=== PATIENT | male | born 1995 | race Caucasian/White ===

== ENCOUNTER 2018-07-08 07:14 | Emergency (ER) | payer OTHER, SELFPAY ==
[2018-07-08 07:21] VITALS: BP 149/80; PULSE 99; RESP 12; TEMP 36.8; O2SAT 96
--- NOTE | 2018-07-08 07:32 | W.ED.GENAD ---
Discharge Plan Disposition Patient Disposition: HOME Condition: Improving Discharge Details Chief Complaint: RespSymp Clinical Impression: Maxillary sinusitis, acute Primary Care Provider: Criss Brandon V ED Provider: Fabrizio Borden Home Meds and New Rx's Prescriptions: New cefdinir 300 mg capsule 300 mg PO Q12H 10 Days Qty: 20 RF: 0 Discharge Instructions Instructions: Sinusitis (ED) Additional Instructions: Home to rest today. Small, frequent sips of fluids to maintain hydration. May continue the Mucinex as you have been taking previously. Please take antibiotics as prescribed. Tylenol and/or ibuprofen as needed for discomfort Stand Alone Forms: Work Release Medical Decision Making 23-year-old male with 7-10 days of cough, congestion, sputum production and now with left face and ear pain. His exam is consistent with acute sinusitis and he likely does have some postnasal drip and bronchitis as well. He does not have abnormal oxygenation. I do feel he is a good candidate for treatment with a course of oral antibiotics. Discussed home management as well as return precautions with the patient prior to discharge. HPI General Mode of arrival: ambulatory. Date/Time Provider Initiated Documentation: 07/08/18 07:27. Limitations to Documentation: no limitations. History of Present Illness 23 year old M presents to the emergency department with the chief complaint of Cough and congestion over days time, now productive of sputum, described as moderate, Quality is described as aching, and is localized to the chest. Patient reports no radiation. Patient started experiencing this day(s) and it has been intermittent. No relieving factors improve symptom(s), No exacerbating factors reported . Patient notes cough and fever/chills; denies nausea/vomiting. Patient did receive the following treatments prior to arrival, other (mucinex) Related Data Home Medications Medication Instructions Recorded Confirmed cefdinir 300 mg PO Q12H 10 Days #20 cap 07/08/18 Previous Rx's Medication Instructions Recorded cefdinir 300 mg PO Q12H 10 Days #20 cap 07/08/18 Allergies Allergy/AdvReac Type Severity Reaction Status Date / Time Penicillins Allergy Unverified 07/08/18 07:27 General Stated Complaint: RespSymp GE: 4 Review of Systems Review of Systems 6 systems reviewed and otherwise negative PFSH Social History Smoking/Tobacco Use Status: Never Social History Smoking/Tobacco Use Status: Never Exam Narrative Exam Narrative: GEN: awake, alert, oriented 3. Pleasant, well groomed, interactive. HEAD: Normocephalic, atraumatic ENT: Mucous membranes moist, oropharynx erythematous and otherwise unremarkable, External ear exam unremarkable. Left tympanic membrane distended and erythematous EYES: PERRL, EOMI NECK: Full ROM, no POLLY, no menigismus CHEST/RESP: Nontender, clear to auscultation bilateral, no wheeze/rhonchi/rales CARDIOVASCULAR: RRR, no murmur, rub baldev. 2+ Rad pulse bilateral ABDOMEN: Soft, nontender, no mass. +Bowel sounds EXT: Full ROM, no edema, no rash Neuro: Grossly normal neurologic exam, conversant, interactive. Psych: Speech fluent, thoughts congruent, affect normal Course Vital Signs Temperature 36.8 C 07/08/18 07:21 Pulse 99 H 07/08/18 07:21 Respiratory Rate 12 07/08/18 07:21 Blood Pressure 149/80 H 07/08/18 07:21 Pulse Oximetry 96 07/08/18 07:21 Temperature 36.8 C 07/08/18 07:21 Temperature Source Temporal Artery Scan 07/08/18 07:21 Pulse 99 H 07/08/18 07:21 Respiratory Rate 12 07/08/18 07:21 Respiratory Effort Non-Labored 07/08/18 07:24 Respiratory Depth Normal 07/08/18 07:24 Blood Pressure 149/80 H 07/08/18 07:21 Blood Pressure Position Sitting 07/08/18 07:21 Pulse Oximetry 96 07/08/18 07:21 Oxygen Delivery Method Room Air 07/08/18 07:21 Oxygen Flow Rate 0 07/08/18 07:21 Pain Level 2 07/08/18 07:21
--- NOTE | 2018-07-08 07:35 | ED.GENADUL_ITS ---
Discharge Plan Disposition Patient Disposition: HOME Condition: Improving Discharge Details Chief Complaint: RespSymp Clinical Impression: Maxillary sinusitis, acute Primary Care Provider: Criss Brandon V ED Provider: Fabrizio Borden Home Meds and New Rx's Prescriptions: New cefdinir 300 mg capsule 300 mg PO Q12H 10 Days Qty: 20 RF: 0 Discharge Instructions Instructions: Sinusitis (ED) Additional Instructions: Home to rest today. Small, frequent sips of fluids to maintain hydration. May continue the Mucinex as you have been taking previously. Please take antibiotics as prescribed. Tylenol and/or ibuprofen as needed for discomfort Stand Alone Forms: Work Release Medical Decision Making 23-year-old male with 7-10 days of cough, congestion, sputum production and now with left face and ear pain. His exam is consistent with acute sinusitis and he likely does have some postnasal drip and bronchitis as well. He does not have abnormal oxygenation. I do feel he is a good candidate for treatment with a course of oral antibiotics. Discussed home management as well as return precautions with the patient prior to discharge. HPI General Mode of arrival: ambulatory . Date/Time Provider Initiated Documentation: 07/08/18 07:27 . Limitations to Documentation: no limitations . History of Present Illness 23 year old M presents to the emergency department with the chief complaint of Cough and congestion over days time, now productive of sputum, described as moderate, Quality is described as aching, and is localized to the chest. Patient reports no radiation. Patient started experiencing this day(s) and it has been intermittent. No relieving factors improve symptom(s), No exacerbating factors reported . Patient notes cough and fever/chills; denies nausea/vomiting. Patient did receive the following treatments prior to arrival, other (mucinex) Related Data Home Medications Medication Instructions Recorded Confirmed cefdinir 300 mg PO Q12H 10 Days #20 cap 07/08/18 Previous Rx's Medication Instructions Recorded cefdinir 300 mg PO Q12H 10 Days #20 cap 07/08/18 Allergies Allergy/AdvReac Type Severity Reaction Status Date / Time Penicillins Allergy Unverified 07/08/18 07:27 General Stated Complaint: RespSymp GE: 4 Review of Systems Review of Systems 6 systems reviewed and otherwise negative PFSH Social History Smoking/Tobacco Use Status: Never Social History Smoking/Tobacco Use Status: Never Exam Narrative Exam Narrative: GEN: awake, alert, oriented 3. Pleasant, well groomed, interactive. HEAD: Normocephalic, atraumatic ENT: Mucous membranes moist, oropharynx erythematous and otherwise unremarkable , External ear exam unremarkable. Left tympanic membrane distended and erythematous EYES: PERRL, EOMI NECK: Full ROM, no POLLY, no menigismus CHEST/RESP: Nontender, clear to auscultation bilateral, no wheeze/rhonchi/rales CARDIOVASCULAR: RRR, no murmur, rub baldev. 2+ Rad pulse bilateral ABDOMEN: Soft, nontender, no mass. +Bowel sounds EXT: Full ROM, no edema, no rash Neuro: Grossly normal neurologic exam, conversant, interactive. Psych: Speech fluent, thoughts congruent, affect normal Course Vital Signs Temperature 36.8 C 07/08/18 07:21 Pulse 99 H 07/08/18 07:21 Respiratory Rate 12 07/08/18 07:21 Blood Pressure 149/80 H 07/08/18 07:21 Pulse Oximetry 96 07/08/18 07:21 Temperature 36.8 C 07/08/18 07:21 Temperature Source Temporal Artery Scan 07/08/18 07:21 Pulse 99 H 07/08/18 07:21 Respiratory Rate 12 07/08/18 07:21 Respiratory Effort Non-Labored 07/08/18 07:24 Respiratory Depth Normal 07/08/18 07:24 Blood Pressure 149/80 H 07/08/18 07:21 Blood Pressure Position Sitting 07/08/18 07:21 Pulse Oximetry 96 07/08/18 07:21 Oxygen Delivery Method Room Air 07/08/18 07:21 Oxygen Flow Rate 0 07/08/18 07:21 Pain Level 2 07/08/18 07:21
== END 2018-07-08 07:42 | disposition home or self-care (01) ==
LOC: ER 08:15
PROVIDERS: Emergency Provider Emergency Medicine; PCP Family Medicine
DX: J01.00 Acute maxillary sinusitis, unspecified (principal)
CPT/HCPCS: 99283

== ENCOUNTER 2018-07-19 13:39 | Emergency (ER) | payer OTHER, SELFPAY ==
[2018-07-19] VITALS (23 sets, daily range): BP systolic 115–139; BP diastolic 53–74; PULSE 76–103; RESP 13–28; TEMP 36.3–37.2; O2SAT 97–100
[2018-07-19] MEDS: Normal Saline 1,000 ML 1000 ML IV ×2 (14:10→15:10)
[2018-07-19 14:18] LABS: Abs Immature Grans 0.01 k/cumm (0.0-0.09); Absolute Basophil Count 0.02 k/cumm (0.0-0.2); Absolute Eosinophil Count 0.08 k/cumm (0.0-0.7); Absolute Lymphocyte Count 0.59 k/cumm (1.2-3.4); Absolute Monocyte Count 0.93 k/cumm (0.11-0.7); Absolute Neutrophil Count 5.42 k/cumm (1.2-6.7); Basophils % 0.3; Eosinophils % 1.1; HCT 47.1 % (40.0-50.0); HGB 16.2 g/dL (13.5-17.5); Immature Grans % 0.1; Lymphocytes % 8.4; Mean Corp. HGB Concentration 34.4 g/dL (32.0-36.0); Mean Corpuscular Hemoglobin 29.7 pg (27.0-33.0); Mean Corpuscular Volume 86.3 fL (80-95); Mean Platelet Volume 10.8 fL (8.0-11.0); Monocytes % 13.2; Neutrophils % 76.9; Platelet Count 248 x1000/uL (130-400); RBC 5.46 m/cumm (4.50-6.00); RBC Distribution Width 12.2 % (11.8-14.1); White Blood Cell Count 7.05 k/cumm (4.4-10.8)
[2018-07-19 14:30] LABS: ALT 28 U/L (12-78); AST 29 U/L (15-37); Albumin 4.2 g/dL (3.4-5.0); Alkaline Phosphatase 94 U/L (46-116); Anion Gap 10.5 mmol/L (3-11); BUN 13 mg/dL (7-18); Bilirubin, Total 0.4 mg/dL (0.2-1.0); CO2 28.5 mmol/L (21.0-32.0); CREATININE 1.06 mg/dL (0.70-1.30); Calcium 9.3 mg/dL (8.5-10.1); Chloride 98 mmol/L (98-107); Glucose 91 mg/dL (70-100); Lipase 91 U/L (73-393); Potassium 3.7 mmol/L (3.5-5.1); Sodium 137 mmol/L (136-145); Total Protein 7.9 g/dL (6.4-8.2)
--- NOTE | 2018-07-19 19:05 | W.ED.GENAD ---
Discharge Plan Disposition Patient Disposition: HOME Condition: Good Discharge Details Chief Complaint: GenMedical Clinical Impression: Diarrhea Primary Care Provider: Criss Brandon V ED Provider: Jerson Burns Discharge Instructions Instructions: Acute Diarrhea (ED) Additional Instructions: Please eat foods high in fiber, please feel free to take Pepto-Bismol or Maalox for your diarrhea. Please avoid any greasy or spicy foods. Please drink 8-10 cups of water per day. If you notice any worsening of your symptoms, or any new symptoms such as vomiting, bloody diarrhea, fever, chills, shortness of breath, chest pain, numbness, weakness, or fainting , please return immediately to the emergency department for reevaluation. Please follow up with your primary care provider as soon as possible for reassessment and reevaluation. As always, it was a pleasure participating in your medical care today. Referrals: Criss Brandon MD [Primary Care Provider] - Discharge Data Discharge Date/Time-TO BE ENTERED AT DEPARTURE: 07/19/18 16:47 Medical Decision Making This is a very pleasant 23-year-old male who presents for evaluation of diarrhea for the last day. He was recently on an antibiotic for sinus infection. Physical exam demonstrates minimal tachycardia on initial presentation, mild crib. His abdomen but no abdominal tenderness. He has had no foreign travel, he denies any blood in his stool. Patient's laboratory workup demonstrates no signs of significant leukocytosis or other abnormalities. Patient was rehydrated with 2 L and his heart rate came down to the 80s. He is feeling much better at this time. C. difficile testing came back as negative. I feel the patient's symptoms might be secondary to his antibiotics but certainly do not appear to be Clostridium difficile. With no blood, no fever, no other red flags do feel that he is safe for discharge home we will recommend home use of Pepto-Bismol, Maalox, foods that are high in fiber, and plenty of fluids over the next few days. We discussed red flags which to return as well as the importance of close PCP follow-up and the patient understands. I have extensively reviewed the treatment plan and discharge instructions with the patient. I have addressed all patient concerns at this time. The patient was made aware of what symptoms to monitor for that would warrant a return to the emergency department. Discussed the plan with the patient, they demonstrate verbal understanding and agreement with our assessment and plan at this time. HPI General Date/Time Provider Initiated Documentation: 07/19/18 13:47. HPI Narrative: This is a 23-year-old male who presents for evaluation of diarrhea and chills. Patient states that he recently had a sinus infection for which he was prescribed Cefdenir, he completed this course be days ago. Starting yesterday the patient had some mild nausea, and subsequently developed diarrhea having roughly 6-10 episodes of loose stool per day. He denies any bloody stool, hematochezia, melena, acholic stool, he denies any vomiting, or significant abdominal pain. He does admit to mild abdominal cramping. Patient denies any recent foreign travel, he denies any other sick contacts. He does not work in the [employer] industry. He has not taken any other new medications. He denies a history of ulcerative colitis or Crohn's. Patient has no other complaints at this time. He denies any modifying or aggravating factors. He denies any IV or illicit drug use. He denies any surgery history in the past. Related Data Allergies Allergy/AdvReac Type Severity Reaction Status Date / Time Penicillins Allergy Unverified 07/19/18 13:54 General Stated Complaint: GenMedical GE: 4 Review of Systems Review of Systems All systems reviewed & are unremarkable except as noted in HPI and below PFSH Social History Smoking/Tobacco Use Status: Never Exam Narrative Exam Narrative: 1.Const: Well-nourished, Well-developed, appearing stated age 2.Eyes: PERRL, no conjunctival injection, and symmetrical lids. 3.ENT: Atraumatic external nose and ears. Moist MM. Neck: Symmetric, trachea midline, No thyromegaly. 4.CVS: +S1/S2, No murmurs or gallops. Peripheral pulses 2+ and equal in all extremities. Brisk capillary refill in all extremities. 5.RESP: Unlabored respiratory effort. Clear to auscultation bilaterally. No wheezes rales or rhonchi 6.GI: Soft, Nontender/Nondistended, No hepatosplenomegaly. No guarding or rebound. Bowel sounds are present throughout. No signs of an acute abdomen. No pain at McBurney's point, negative Gaxiola sign. 7.MSK: Normocephalic/Atraumatic, Extremities w/o deformity or ttp No cyanosis or clubbing, Normal movement of all extremities 8.Skin: Warm, Dry. No rashes or lesions. 9.Neuro: online community manager II-XII grossly intact. Sensation grossly intact, no focal neurologic deficits. 10.Psych: (AAO) x3. Appropriate mood and affect Course Vital Signs Temperature 36.3 C L 07/19/18 13:51 Pulse 103 H 07/19/18 13:51 Respiratory Rate 17 07/19/18 13:51 Blood Pressure 139/74 07/19/18 13:51 Pulse Oximetry 99 07/19/18 13:51 Temperature 37.2 C 07/19/18 16:40 Temperature Source Skin 07/19/18 13:51 Pulse 81 07/19/18 16:40 Pulse 90 07/19/18 16:31 Respiratory Rate 16 07/19/18 18:24 Respiratory Effort Non-Labored 07/19/18 18:24 Respiratory Depth Normal 07/19/18 18:24 Respiratory Pattern Normal 07/19/18 18:24 Blood Pressure 119/58 L 07/19/18 16:40 Blood Pressure Mean 73 07/19/18 16:30 Blood Pressure Position Sitting 07/19/18 13:51 Pulse Oximetry 98 07/19/18 16:40 Oxygen Delivery Method Room Air 07/19/18 13:51 Oxygen Flow Rate 0 07/19/18 13:51 Pain Level 0 07/19/18 16:40 Lab/Test Results Lab/Test Results: 07/19/18 14:58 Stool Clostridium difficile Screen - Final Laboratory Tests Range/Units 07/19/18 07/19/18 14:10 14:10 WBC (4.4-10.8) k/cumm 7.05 RBC (4.50-6.00) m/cumm 5.46 Hgb (13.5-17.5) g/dL 16.2 Hct (40.0-50.0) % 47.1 MCV (80-95) fL 86.3 MCH (27.0-33.0) pg 29.7 MCHC (32.0-36.0) g/dL 34.4 RDW (11.8-14.1) % 12.2 Plt Count (130-400) x1000/uL 248 MPV (8.0-11.0) fL 10.8 Immature Gran % 0.1 Neutrophils % 76.9 Lymphocytes % 8.4 Monocytes % 13.2 Eosinophils % 1.1 Basophils % 0.3 Absolute Neutrophils (1.2-6.7) k/cumm 5.42 Absolute Lymphocytes (1.2-3.4) k/cumm 0.59 L Absolute Monocytes (0.11-0.7) k/cumm 0.93 H Absolute Eosinophils (0.0-0.7) k/cumm 0.08 Absolute Basophils (0.0-0.2) k/cumm 0.02 Sodium (136-145) mmol/L 137 Potassium (3.5-5.1) mmol/L 3.7 Chloride (98-107) mmol/L 98 Carbon Dioxide (21.0-32.0) mmol/L 28.5 Anion Gap (3-11) mmol/L 10.5 BUN (7-18) mg/dL 13 Creatinine (0.70-1.30) mg/dL 1.06 Estimated GFR/1.73 m2 (mL/min/1.73m2) >= 60.00 Glucose (70-100) mg/dL 91 Calcium (8.5-10.1) mg/dL 9.3 Total Bilirubin (0.2-1.0) mg/dL 0.4 AST (15-37) U/L 29 ALT (12-78) U/L 28 Alkaline Phosphatase (46-116) U/L 94 Total Protein (6.4-8.2) g/dL 7.9 Albumin (3.4-5.0) g/dL 4.2 Lipase (73-393) U/L 91
== END 2018-07-19 16:47 | disposition home or self-care (01) ==
PROVIDERS: Emergency Provider Student in an Organized Health Care Education/Training Program; PCP Family Medicine
DX: R19.7 Diarrhea, unspecified (principal)
CPT/HCPCS: 36415; 80053; 83690; 96360; 96361; 99283; 85025; 87324

== ENCOUNTER 2019-11-26 12:12 | Outpatient (REF) | payer OTHER, SELFPAY | END 2019-11-26 12:32 | LOC: NCHCN 12:12 | PROVIDERS: PCP Family Medicine; Visit Provider Family Medicine | DX: R35.8 Other polyuria (principal); R03.0 Elevated blood-pressure reading, without diagnosis of hypertension; Z53.8 Procedure and treatment not carried out for other reasons | CPT/HCPCS: 80048; 80061 ==

== ENCOUNTER 2019-12-07 20:00 | Outpatient (REF) | payer OTHER, SELFPAY ==
[2019-12-07 19:55] LABS: Anion Gap 7.3 mmol/L (3-11); BUN 16 mg/dL (7-18); CO2 30.7 mmol/L (21.0-32.0); CREATININE 0.95 mg/dL (0.70-1.30); Calcium 9.4 mg/dL (8.5-10.1); Calculated LDL 89 mg/dL (<100); Chloride 102 mmol/L (98-107); Cholesterol 161 mg/dL (<200); Glucose 70 mg/dL (74-106); HDL Cholesterol 53 mg/dL (40-60); Potassium 4.6 mmol/L (3.5-5.1); Sodium 140 mmol/L (136-145); Triglyceride 99 mg/dL (<150)
== END 2019-12-07 20:20 ==
LOC: NCHCN 20:00
PROVIDERS: PCP Family Medicine; Visit Provider Family Medicine
DX: R03.0 Elevated blood-pressure reading, without diagnosis of hypertension (principal); R35.8 Other polyuria; Z00.00 Encounter for general adult medical examination without abnormal findings
CPT/HCPCS: 80048; 80061

== ENCOUNTER 2021-08-18 15:17 | Outpatient (REF) | payer OTHER, SELFPAY ==
[2021-08-18 19:41] LABS: Abs Immature Grans 0.01 10^3/uL (0.0-0.06); Absolute Basophil Count 0.04 10^3/uL (0.0-0.2); Absolute Eosinophil Count 0.05 10^3/uL (0.0-0.7); Absolute Lymphocyte Count 0.97 10^3/uL (1.2-3.4); Absolute Monocyte Count 0.97 10^3/uL (0.1-0.8); Absolute Neutrophil Count 3.91 10^3/uL (1.2-6.7); Basophils % 0.7; Eosinophils % 0.8; HCT 46.6 % (40.0-50.0); HGB 15.2 g/dL (13.5-17.5); Immature Grans % 0.2; Lymphocytes % 16.3; MCH 29.4 pg (27.0-33.0); MCHC 32.6 % (32.0-36.0); MCV 90.1 fL (80-95); MPV 11.3 fL (8.0-11.0); Monocytes % 16.3; Neutrophils % 65.7; Nucleated RBC 0 %; Platelet Count 255 10^3/uL (130-400); RBC 5.17 10^6/uL (4.36-5.78); RDW 11.6 % (11.8-14.1); RDW-SD 38.7 fL; WBC 5.95 10^3/uL (4.4-10.8)
[2021-08-18 20:21] LABS: ALT 19 U/L (16-63); AST 14 U/L (15-37); Albumin 4.7 g/dL (3.4-5.0); Alkaline Phosphatase 94 U/L (46-116); Anion Gap 8.8 mmol/L (3-11); BUN 9 mg/dL (7-18); Bilirubin, Total 0.4 mg/dL (0.2-1.0); CO2 29.2 mmol/L (21.0-32.0); CREATININE 0.9 mg/dL (0.70-1.30); Calcium 9.3 mg/dL (8.5-10.1); Chloride 103 mmol/L (98-107); Glucose 87 mg/dL (74-106); Potassium 4.2 mmol/L (3.5-5.1); Sodium 141 mmol/L (136-145); Total Protein 7.9 g/dL (6.4-8.2)
== END 2021-08-18 15:18 | disposition home or self-care (01) ==
LOC: NCHCN 15:17
PROVIDERS: PCP Family Medicine; Visit Provider Nurse Practitioner Family
DX: J02.9 Acute pharyngitis, unspecified (principal); R10.9 Unspecified abdominal pain
CPT/HCPCS: 80053; 85025

== ENCOUNTER 2022-02-12 03:29 | Outpatient (CLI) | payer OTHER, SELFPAY ==
[2022-02-12 08:49] LABS: HCT 41.5 % (40.0-50.0); HGB 14.4 g/dL (13.5-17.5); MCH 30.3 pg (27.0-33.0); MCHC 34.7 % (32.0-36.0); MCV 87 fL (80-95); MPV 10.7 fL (8.0-11.0); Platelet Count 276 10^3/uL (130-400); RBC 4.75 10^6/uL (4.36-5.78); RDW 11.9 % (11.8-14.1); RDW-SD 38.9 fL; WBC 5.99 10^3/uL (4.4-10.8)
[2022-02-12 09:47] LABS: ALT 35 U/L (16-63); AST 21 U/L (15-37); Albumin 4.1 g/dL (3.4-5.0); Alkaline Phosphatase 69 U/L (46-116); Anion Gap 8.1 mmol/L (3-11); BUN 12 mg/dL (7-18); Bilirubin, Total 0.4 mg/dL (0.2-1.0); CO2 30.9 mmol/L (21.0-32.0); CREATININE 1.1 mg/dL (0.70-1.30); Calcium 8.9 mg/dL (8.5-10.1); Chloride 103 mmol/L (98-107); Glucose 87 mg/dL (74-106); Potassium 3.7 mmol/L (3.5-5.1); Sodium 142 mmol/L (136-145); TSH (W/Ref FT4) 1.27 uIU/mL (0.36-3.74); Total Protein 7.1 g/dL (6.4-8.2)
[2022-02-12 10:01] LABS: Creatinine,Urine 88.67 mg/dL; POTASSIUM,URINE RANDOM 11 mmol/L; Sodium, Urine 81 mmol/L
[2022-02-12 10:10] LABS: PROTEIN < 6.0 mg/dL (0.0-11.9); SAMPLE LIPEMIA CHECK 2650 ml
[2022-02-12 10:29] LABS: Vitamin D 25 Total 15.4 ng/mL (30-100)
[2022-02-12 17:15] LABS: Timed Urine Volume 2650 mL; Urea Nitrogen Random Urine 432 mg/dL (See Note); Urean Nitrogen Urine 24hr 11 g/24hrs (12-20)
[2022-02-12 17:17] LABS: Osmolality, Urine 569 mOsm/kg (150-1,150)
[2022-02-13 11:14] LABS: Misc Referral (UVM) See Comments
== END 2022-02-12 03:30 | disposition home or self-care (01) ==
LOC: LBO 03:29
PROVIDERS: PCP Family Medicine; Visit Provider Family Medicine
DX: Z00.00 Encounter for general adult medical examination without abnormal findings (principal); R53.83 Other fatigue; R35.89 Other polyuria; E55.9 Vitamin D deficiency, unspecified
CPT/HCPCS: 36415; 80053; 82306; 83935; 85027; 81050; 82436; 82565; 84133; 84156; 84300; 84443; 84540

== ENCOUNTER 2022-11-19 10:15 | Outpatient (REF) | payer OTHER, SELFPAY ==
[2022-11-19 16:22] LABS: HCT 42.9 % (40.0-50.0); HGB 14.8 g/dL (13.5-17.5)
[2022-11-19 17:20] LABS: BUN 15 mg/dL (7-18); CREATININE 1.1 mg/dL (0.70-1.30); Calcium 9.2 mg/dL (8.5-10.1); Chloride 105 mmol/L (98-107); Estimated GFR 93.77 (mL/min/1.73m2); Glucose 120 mg/dL (74-106); Potassium 3.9 mmol/L (3.5-5.1); Sodium 141 mmol/L (136-145); TSH (W/Ref FT4) 1.41 uIU/mL (0.36-3.74); Vitamin B12 793 pg/mL (193-986); Vitamin D 25 Total 21.1 ng/mL (30-100)
[2022-11-26 15:20] LABS: Testosterone, Total 337 ng/dL (240-950)
== END 2022-11-19 10:16 | disposition home or self-care (01) ==
LOC: NCHCN 10:15
PROVIDERS: PCP Family Medicine; Visit Provider Family Medicine
DX: Z00.00 Encounter for general adult medical examination without abnormal findings (principal); E55.9 Vitamin D deficiency, unspecified; R53.83 Other fatigue
CPT/HCPCS: 80048; 82306; 84402; 84403; 82607; 84443; 85014; 85018

== ENCOUNTER 2022-12-21 14:50 | Outpatient (REF) | payer OTHER, SELFPAY ==
[2022-12-21 15:52] LABS: BUN 14 mg/dL (7-18); CREATININE 1.1 mg/dL (0.70-1.30); Calcium 9.5 mg/dL (8.5-10.1); Chloride 104 mmol/L (98-107); Estimated GFR 93.77 (mL/min/1.73m2); Glucose 90 mg/dL (74-106); Potassium 4.1 mmol/L (3.5-5.1); Sodium 142 mmol/L (136-145)
[2022-12-24 15:38] LABS: IgA 161 mg/dL (85-499); Interpretation (See Note); Tissue Transglutaminase IgA <1.2 U/mL (<4.0)
== END 2022-12-21 14:51 | disposition home or self-care (01) ==
LOC: NCHCN 14:50
PROVIDERS: PCP Family Medicine; Visit Provider Family Medicine
DX: R53.83 Other fatigue (principal)
CPT/HCPCS: 80048; 82784; 83516

== ENCOUNTER 2023-01-28 08:03 | Outpatient (REF) | payer OTHER, SELFPAY ==
[2023-01-28 17:29] LABS: Vitamin D 25 Total 25.6 ng/mL (30-100)
== END 2023-01-28 08:04 | disposition home or self-care (01) ==
LOC: NCHCN 08:03
PROVIDERS: PCP Family Medicine; Visit Provider Family Medicine
DX: E55.9 Vitamin D deficiency, unspecified (principal)
CPT/HCPCS: 82306

== ENCOUNTER 2023-06-07 14:54 | Outpatient (REF) | payer OTHER, SELFPAY ==
[2023-06-07 16:37] LABS: Vitamin D 25 Total 29.2 ng/mL (30-100)
== END 2023-06-07 14:55 | disposition home or self-care (01) ==
LOC: NCHCN 14:54
PROVIDERS: PCP Family Medicine; Visit Provider Family Medicine
DX: E55.9 Vitamin D deficiency, unspecified (principal)
CPT/HCPCS: 82306

== ENCOUNTER 2023-11-01 01:41 | Outpatient (CLI) | payer BC, SELFPAY ==
[2023-11-04 12:05] LABS: Lyme Ab w Rflx to Lyme Confirm Negative (Negative)
== END 2023-11-01 01:42 | disposition home or self-care (01) ==
LOC: LBO 01:46
PROVIDERS: PCP Family Medicine; Visit Provider Nurse Practitioner Psychiatric/Mental Health
DX: R53.83 Other fatigue (principal)
CPT/HCPCS: 36415; 86618

== ENCOUNTER 2023-11-01 14:04 | Outpatient (CLI) | payer BC, SELFPAY ==
--- NOTE | 2023-11-01 14:15 | RT.EKG_ITS ---
APPROVED REPORT Exam: Resting ECG Reason for Exam: SOB Patient Location: O HR:73 bpm ECG Measurements Heart Rate 73 AXIS MD 155 P 64 QRSd 105 QRS 62 QT 376 T 72 QTc 415 Conclusion Sinus rhythm...normal P axis, V-rate 50- 99 Baseline wander in lead(s) V1 Normal Electrocardiogram
== END 2023-11-01 14:05 | disposition home or self-care (01) ==
LOC: CARDOPNVT 14:04
PROVIDERS: PCP Family Medicine; Visit Provider Nurse Practitioner Psychiatric/Mental Health
DX: R06.02 Shortness of breath (principal)
CPT/HCPCS: 93005; 93010

== ENCOUNTER 2023-11-26 17:43 | Outpatient (REF) | payer BC, SELFPAY ==
[2023-11-28 18:30] LABS: Vitamin D 25 Total 47.1 ng/mL (30-100)
== END 2023-11-26 17:44 | disposition home or self-care (01) ==
LOC: NCHCN 17:43
PROVIDERS: PCP Family Medicine; Visit Provider Nurse Practitioner Psychiatric/Mental Health
DX: E55.9 Vitamin D deficiency, unspecified (principal)
CPT/HCPCS: 82306

== ENCOUNTER 2025-06-01 14:07 | Outpatient (REF) | payer BC, SELFPAY ==
[2025-06-01 18:10] LABS: ALT 29 U/L (16-63); AST 18 U/L (15-37); Vitamin D 25 Total 38 ng/mL (30-100)
== END 2025-06-01 14:08 | disposition home or self-care (01) ==
LOC: NCHCN 14:07
PROVIDERS: PCP Family Medicine; Visit Provider Family Medicine
DX: E55.9 Vitamin D deficiency, unspecified (principal); B35.1 Tinea unguium; F90.9 Attention-deficit hyperactivity disorder, unspecified type
CPT/HCPCS: 80360; 82306; 84450; 84460

== ENCOUNTER 2025-07-21 08:19 | Outpatient (REF) | payer BC, SELFPAY ==
[2025-07-21 16:48] LABS: ALT 21 U/L (10-49); AST 20 U/L (<34)
== END 2025-07-21 08:20 | disposition home or self-care (01) ==
LOC: NCHCN 08:19
PROVIDERS: PCP Family Medicine; Visit Provider Family Medicine
DX: Z79.899 Other long term (current) drug therapy (principal)
CPT/HCPCS: 84450; 84460